=== PATIENT | female | born 1985 | race Hispanic/Latino ===

== ENCOUNTER 2016-08-06 11:22 | Emergency (ER) | payer MEDICAID ==
[~2016-08-06] VITALS: Ht 149.9 cm; Wt 44.1 kg
[2016-08-06 11:38] VITALS: BP 107/67; PULSE 104; RESP 16; O2SAT 100
[2016-08-06] MEDS ORDERED: PREN1TAB87 PO (11:40)
--- NOTE | 2016-08-06 12:25 | ED.REPORT ---
HPI-Preg Under 20 Weeks Date of Service Aug 06, 2016 ED Provider: Quentin Huber MD 30 year old female who is currently 12 weeks via ultrasound () who presents to the ED due to many days of intermittent abd cramping. She describes the pain as worse than a period. She has no pain currently. She was also using heavy equipment yesterday which she believes may have caused the pain. Yesterday she noticed mild vaginal bleeding. Pt had an ultrasound 07/24/16 which showed a normal intrauterine at 10 weeks, 2 days. She has also had difficulty with urinating but denies dysuria. Nursing Notes Stated Complaint: SPOTTING/BLEEDING/ Chief Complaint: & Delivery Nursing Notes Reviewed: Yes Allergies: Coded Allergies: No Known Allergies (Unverified , 08/06/16) Scheduled Nitrofurantoin Monohyd/M-Cryst (MacroBid) 100 Mg Capsule 100 MG PO BID Vit W-Ca,Fe,FA(<1 mg) ( Vitamins) 1 Each Tablet 1 EACH PO DAILY General Time Seen by Provider: 12:25 Chief Complaint Abdominal cramping, , Vaginal bleeding Hx Obtained From: Patient Arrived By: Walk-in Onset Occurred: 3 days ago Symptom Duration: Intermittent Location: : Abdomen lower Quality: Cramping Severity: Current: No pain currently Severity: Maximum: Moderate Associated with: Denies: Fever, Vomiting Pertinent Negative: Relieved by nothing Past Medical History Past Medical History Past Surgical History Reports: Cholecystectomy Smoking History Never Smoker Social History Other Social History: Good social support Ambulatory Status Independent Review of Systems Basic Review of Systems ENT: Hearing NL, No pain, No nasal congestion, No pharyngeal pain Psychiatric: Normal thought content Constitutional: Denies: Fever Respiratory: Denies: Shortness of breath Cardiovascular: Denies: Chest pain GI: Reports: Abdominal pain, Denies: Vomiting Female: Reports: , Vaginal bleeding - abnl, Denies: Dysuria Skin: Denies Rash Complete sys rev & neg: except as marked. Physical Exam Initial Vital Signs Vital Signs (First) Date Time Temp Pulse Resp B/P Pulse Ox O2 Delivery O2 Flow Rate FiO2 08/06/16 11:38 36.6 104 16 107/67 100 Room Air Initial VS: Reviewed Head / Eyes: Atraumatic, Normocephalic, PERRL ENT: Mucous membranes moist, Conjunctiva normal, No scleral icterus Neck: Supple, Non-tender, Full range of motion Respiratory: Breath sounds normal, Clear to auscultation, No respiratory distress Cardiovascular: Regular rate & rhythm, Heart sounds normal, Intact distal pulses Extremities: Vascular intact, Neuro intact, No swelling, No tenderness Skin: Warm, Dry, No cyanosis Neurologic: Alert, Oriented, Nonfocal Psychiatric: Mood/affect normal, Behavior normal, Normal thought content General/Constitutional: Awake, Alert Abdomen: Soft, Non-tender, No guarding, No rebound Interpretation & Diagnostics Lab Results Interpretation Test 08/06/16 12:45 08/06/16 12:46 Urine Color Yellow (YELLOW) Urine Appearance Slightly cloudy Urine pH 8.0 (5.0-8.0) Urine Specific [place] 1.020 (1.003-1.035) Urine Protein Negativemg/dL (NEG,TRACE) Urine Glucose (UA) Negativemg/dL (NEGATIVE) Urine Ketones Negativemg/dL (NEGATIVE) Urine Occult Blood Negative (NEGATIVE) Urine Nitrite Negative (NEGATIVE) Urine Bilirubin Negative (NEGATIVE) Urine Urobilinogen Normalmg/dL (NORMAL) Urine Leukocyte Esterase Trace (NEGATIVE) Urine RBC 0-2/hpf (0-2) Urine WBC 11-50/hpf (0-5) Urine Epithelial Cells Moderate/hpf (NONE-MOD) Urine Crystals None seen (NONE SEEN) Urine Bacteria Moderate/hpf (NONE-FEW) Urine Hyaline Casts None/lpf (NONE) Urine Granular Casts None seen (NONE SEEN) Urine Waxy Casts None seen (NONE SEEN) Urine Red Blood Cell Casts None seen (NONE SEEN) Urine White Blood Cell Casts None seen (NONE SEEN) Urine Mucus Present (None Seen) Urine Trichomonas None seen (NONE SEEN) Urine Yeast None (NONE SEEN) Urinalysis Comment None Urine Culture Reflexed Indicated Hold Purple Top Tube Received (Received) Hold Blue Top Tube Received (Received) Hold Red Top Tube Received (Received) Hold [place] Top Tube Received (Received) Hold [place] Top Tube Received (Received) General Lab Results Interp 1: Labs reviewed Re-Eval/Medical Decision Re-Evaluation/Progress : Time of Eval: 14:44 Re-Evaluation/Progress Note: Updated pt of labs. Discussed plan for discharge and follow up. All questions addressed. Counseled Regarding: Diagnosis, Lab results, Need for follow-up, When/why to return to ED Discharge & Departure Primary Impression: Urinary tract infection during Trimester: first trimester Qualified Code: O23.41 - Unspecified infection of urinary tract in , first trimester Additional Impressions: Vaginal spotting Intrauterine Disposition: Home Discharge Condition All VS Reviewed: Yes Condition: Improved Patient Instructions: Urinary Tract Infection in Women (ED) Additional Instructions: Your workup today is reassuring. Your urine shows signs of infection. You can take the antibiotic Macrobid 2 times daily for 7 days to treat this. You can use Tylenol for pain. Return to the ER for severe bleeding, abd pain or for any new or concerning symptoms. [employer] Tu trabajo hoy es tranquilizador. Kelly orina muestra signos de infeccin. Usted puede danita el antibitico Macrobid 2 veces al da boubacar 7 crowley para tratar esto. Puede usar Tylenol para el dolor. Regrese a la vikki de emergencias para sangrado pankaj, dolor abdominal o para cualquier sntoma nuevo o relacionado. Referrals: Juan Carvajal MD (PCP) Scribe Attestation Portions of this note were transcribed by Ila Oconnor. I, (Dr. Huber) personally performed the history, physical exam and medical decision-making; I reviewed and confirmed the accuracy of the information in the transcribed note. Signed by: Ila Oconnor. 08/06/2016, 1447 copies to: Juan Carvajal MD, Kirk H MD Aug 06, 2016 12:25 Ila Oconnor Aug 06, 2016 12:35
[2016-08-06 13:55] LABS: APPEARANCE,URINE SLIGHTLY CLOUDY (CLEAR,HAZY); COLOR,URINE YELLOW (YELLOW)
[2016-08-06 13:56] LABS: OCCULT BLOOD,URINE NEGATIVE (NEGATIVE); UROBILINOGEN,URINE NORMAL (NORMAL)
[2016-08-06] MEDS ORDERED: NITR100 PO (14:57)
== END 2016-08-06 15:03 | disposition home or self-care (01) ==
LOC: SED 11:22
DX: O23.41 Unspecified infection of urinary tract in pregnancy, first trimester (principal); O26.851 Spotting complicating pregnancy, first trimester; Z3A.12 12 weeks gestation of pregnancy